=== PATIENT | female | born 1990 | race Caucasian/White ===

== ENCOUNTER 2017-03-25 07:08 | Emergency (ER) | payer OTHER ==
--- NOTE | 2017-03-25 07:28 | UC ---
Ear Complaint HPI - HPI Summary HPI Summary: ONSET OF RIGHT EAR PAIN AND MUFFLED HEARING SINCE YESTERDAY. HAS HAD ALLERGY/ URI SX FOR THE PAST 1-2 WEEKS. HAS TAKEN OTC MEDS WITH NO RELIEF. COUGH IS KEEPING HER UP AT NIGHT. SMOKES A PACK A DAY. NO FEVER, N/V/D. - History of Current Complaint Chief Complaint: UCGeneralIllness Stated Complaint: COUGH, SINUS CONGESTION, AND EAR ACHE Time Seen by Provider: 03/25/17 07:12 Hx Obtained From: Patient Hx Last Menstrual Period: 03/19/17 Onset/Duration: Gradual Onset, Lasting Days, Still Present Severity Initially: Moderate Severity Currently: Moderate Pain Intensity: 8 Pain Scale Used: 0-10 Numeric Aggravating Factors: Nothing Alleviating Factors: Nothing Associated Signs/Symptoms: Positive: Hearing Loss, URI Symptoms. Negative: Discharge, Foreign Body Sensation, Trauma to Ear - Allergies/Home Medications Allergies/Adverse Reactions: Allergies Allergy/AdvReac Type Severity Reaction Status Date / Time No Known Allergies Allergy Verified 03/25/17 07:17 Home Medications: Home Medications Acetaminophen [Eq Acetaminophen] 2 tab PO Q6HR PRN 03/25/17 [History Confirmed 03/25/17] Dextromethorphan-Phenylephrine [Vicks Dayquil Cold & Flu 10-5-325 mg] 2 tab PO Q4HR PRN 03/25/17 [History Confirmed 03/25/17] GuaiFENesin DM* [Robitussin DM*] 1 teasp PO BID PRN 03/25/17 [History Confirmed 03/25/17] Pseudoephedrine TAB* [Sudafed TAB*] 1 tab PO Q4HR PRN 03/25/17 [History Confirmed 03/25/17] PMH/Surg Hx/FS Hx/Imm Hx Respiratory History: Asthma - Surgical History Surgical History: Yes Surgery Procedure, Year, and Place: X3, EYE SURGERY, WISDOM TEETH EXTRACTION - Family History Known Family History: Positive: Cardiac Disease, Diabetes - Social History Alcohol Use: Occasionally Substance Use Type: None Smoking Status (MU): Current Every Day Smoker Type: Cigarettes Amount Used/How Often: 1 PPD Have You Smoked in the Last Year: Yes Household Exposure Type: Cigarettes - Immunization History Most Recent Influenza Vaccination: Declined Most Recent Tetanus Shot: 08/04/15 Most Recent Pneumonia Vaccination: na Review of Systems Constitutional: Negative ENT: Ear Ache, Nasal Discharge Respiratory: Cough Cardiovascular: Negative Gastrointestinal: Negative Genitourinary: Negative All Other Systems Reviewed And Are Negative: Yes Physical Exam Triage Information Reviewed: Yes Appearance: Well-Appearing, No Pain Distress, Well-Nourished Vital Signs: Initial Vital Signs Temp 97.9 F 03/25/17 07:11 Pulse 84 03/25/17 07:11 Resp 20 03/25/17 07:11 BP 135/97 03/25/17 07:11 Pulse Ox 94 03/25/17 07:11 Vital Signs Reviewed: Yes Eyes: Positive: Conjunctiva Clear ENT: Positive: Hearing grossly normal, Pharyngeal erythema, Tonsillar swelling, Other: - RIGHT TM DULL, BULGING, ERYTHEMATOUS, OPAQUE. LEFT TM SLIGHTLY ERYTHEMATOUS. Negative: Tonsillar exudate Neck: Positive: Supple, Nontender, No Lymphadenopathy Respiratory: Positive: No respiratory distress, No accessory muscle use, Decreased breath sounds, Rhonchi - LEFT MID LUNG Cardiovascular Exam: Normal Abdomen Description: Positive: Soft Musculoskeletal: Positive: No Edema Neurological: Positive: Alert Psychological: Positive: Age Appropriate Behavior Skin: Negative: rashes Re-Evaluation - Re-Evaluation First Eval Re-Evaluation Time: 08:10 - O2 SAT IMPROVED TO 97% AND LUNGS CLEAR AFTER DUONEB. PT FEELS BETTER Change: Improved Ear Complaint Course/Dx - Differential Dx/Diagnosis Provider Diagnoses: 1. RIGHT AOM. 2. ACUTE BRONCHITIS Discharge - Discharge Plan Condition: Stable Disposition: HOME Prescriptions: Albuterol HFA INHALER* [Ventolin HFA Inhaler*] 2 puff INH Q4H PRN #1 mdi PRN Reason: Shortness Of Breath Amoxicillin CAP* [Amoxicillin 500 MG CAP*] 1,000 mg PO Q12H #40 cap guaiFENesin/CODIEN 100MG-10MG* [Robitussin AC 100Mg-10Mg*] 5 - 10 ml PO Q6H PRN #150 ml MDD 40ML PRN Reason: Cough Patient Education Materials: Otitis Media (ED), Acute Bronchitis (ED) Referrals: No Primary Care Phys,NOPCP [Primary Care Provider] - Additional Instructions: TAKE THE ANTIBIOTICS FOR THE FULL 10 DAYS. DO NOT STOP [facility] THROUGH. CONTINUE YOUR ANTIHISTAMINE TO COVER FOR ANY ALLERGIC COMPONENT. SEEK FOLLOW-UP IF YOU ARE NOT IMPROVING EXPECTED. CALL THE NUMBER BELOW FOR ASSISTANCE IN ESTABLISHING WITH A PCP An additional resource available to assist in finding the appropriate physician for your health care needs is the [facility] ([facility]). You may contact them by calling [phone].
[2017-03-25] MEDS ORDERED: Albuterol 2.5 MG/3 ML NEB.SOL* (0.083%) INH ONE (07:29)
[2017-03-25] MEDS ORDERED: Ipratropium 0.5MG/2.5ML NEB* 0.5 MG/2.5 ML NEB.SOLN INH ONE (07:29)
[2017-03-25 08:10] VITALS: BP 128/73
== END 2017-03-25 08:24 | disposition home or self-care (01) ==
LOC: UCEAST 07:08
DX: H66.91 Otitis media, unspecified, right ear (principal); J20.9 Acute bronchitis, unspecified; F17.210 Nicotine dependence, cigarettes, uncomplicated; J45.909 Unspecified asthma, uncomplicated
CPT/HCPCS: 99212; G0463; J7644

== ENCOUNTER 2017-09-15 18:51 | Emergency (ER) | payer OTHER ==
[2017-09-15 19:02] VITALS: BP 113/67
--- NOTE | 2017-09-15 19:09 | UC ---
Respiratory Complaint HPI - HPI Summary HPI Summary: 26 year old female presents with sore throat and difficulty swallowing. - History of Current Complaint Chief Complaint: UCGeneralIllness Stated Complaint: URI Time Seen by Provider: 09/15/17 18:55 Hx Obtained From: Patient Hx Last Menstrual Period: 03/19/17 Onset/Duration: Sudden Onset, Lasting Days Severity Initially: Moderate Severity Currently: Moderate Pain Scale Used: 0-10 Numeric - 7 Character: Cough: Nonproductive - Allergies/Home Medications Allergies/Adverse Reactions: Allergies Allergy/AdvReac Type Severity Reaction Status Date / Time No Known Allergies Allergy Verified 09/15/17 19:02 Home Medications: Home Medications Acetaminophen [Acetaminophen Extra Stren] 1,000 mg PO Q4H PRN 09/15/17 [History Confirmed 09/15/17] Vitamin [Calna] 1 tab PO DAILY 09/15/17 [History Confirmed 09/15/17] PMH/Surg Hx/FS Hx/Imm Hx Previously Healthy: Yes - Surgical History Surgical History: Yes Surgery Procedure, Year, and Place: X3, EYE SURGERY, WISDOM TEETH EXTRACTION - Family History Known Family History: Positive: Cardiac Disease, Diabetes Family History: Pt was in foster care. - Social History Alcohol Use: None Substance Use Type: None Smoking Status (MU): Current Every Day Smoker Type: Cigarettes Amount Used/How Often: 1 PPD Have You Smoked in the Last Year: Yes Household Exposure Type: Cigarettes - Immunization History Most Recent Influenza Vaccination: Declined Most Recent Tetanus Shot: 08/04/15 Most Recent Pneumonia Vaccination: na Review of Systems Constitutional: Negative Skin: Negative Eyes: Negative ENT: Sore Throat, Nasal Discharge, Sinus Congestion, Sinus Pain/Tenderness Respiratory: Negative Cardiovascular: Negative Gastrointestinal: Negative Genitourinary: Negative Motor: Negative Neurovascular: Negative Musculoskeletal: Negative Neurological: Negative Psychological: Negative All Other Systems Reviewed And Are Negative: Yes Physical Exam Triage Information Reviewed: Yes Vital Signs: Initial Vital Signs Temp 36.8 C 09/15/17 18:57 Pulse 122 09/15/17 18:57 Resp 20 09/15/17 18:57 BP 113/67 09/15/17 18:57 Pulse Ox 98 09/15/17 18:57 Vital Signs Reviewed: Yes Eye Exam: Normal ENT: Positive: Pharyngeal erythema, Nasal congestion, Nasal drainage, Tonsillar swelling, Tonsillar exudate, Sinus tenderness Dental Exam: Normal Neck exam: Normal Neck: Positive: 1 Respiratory Exam: Normal Cardiovascular Exam: Normal Abdominal Exam: Normal Musculoskeletal Exam: Normal Neurological Exam: Normal Psychological Exam: Normal Skin Exam: Normal UC Diagnostic Evaluation - Laboratory O2 Sat by Pulse Oximetry: 98 Respiratory Course/Dx - Differential Dx/Diagnosis Provider Diagnoses: strep throat. pharyngitis Discharge - Discharge Plan Condition: Stable Disposition: HOME Prescriptions: Amoxicillin PO (*) [Amoxicillin 875 MG (*)] 875 mg PO BID #20 tab Patient Education Materials: Strep Throat (ED), Tonsillitis (ED) Forms: *Work Release Referrals: No Primary Care Phys,NOPCP [Primary Care Provider] - Lemuel James MD [Medical Doctor] -
== END 2017-09-15 19:55 | disposition home or self-care (01) ==
LOC: UCEAST 18:51
DX: J02.0 Streptococcal pharyngitis (principal); F17.210 Nicotine dependence, cigarettes, uncomplicated
CPT/HCPCS: 87502; 87651; 99212; G0463

== ENCOUNTER 2018-02-14 06:05 | Inpatient (IN) | payer OTHER ==
--- NOTE | 2018-02-13 21:37 | HP ---
General Information - General Information Maternal Age: 27 Grav: 4 Para: 3 SAB: 0 IEA: 0 Estimated Due Date: 02/20/18 Determined By: Early Ultrasound Gestational Age in Weeks and Days: 39 Weeks and 0 Days Maternal Blood Type and Rh: A Positive - Results this Serology/RPR Result: Non-Reactive Rubella Result: Immune HBsAg Result: Negative HIV Result: Negative GBS Culture Result: Negative Past Medical History Delivery History: Hx C/Section, See Records Pertinent Past Medical History: See Records Past Medical History Comment: Morbid Obesity BMI 41 Asthma Pertinent Past Surgical History: See Records Past Surgical History Comment: Section X 3 in 1011, 2012 1nd 2016. [place] Teeth removal Eye surgery Pertinent Family History: See Records - CVD and Diabetes Review of Systems Constitutional: Comfortable CV Complaint: No Respiratory: Shortness of Breath: No Gastrointestinal: No Nausea/Vomiting, Normal Bowel Movement Genitourinary: No Dysuria, No Bleeding, No Leaking Fluid Musculoskeletal: No Complaint Neurological: No Headache, No Visual Changes Movement: Normal Exam Allergies/Adverse Reactions: Allergies No Known Allergies Allergy (Verified 02/09/18 12:21) Temp 98.8 BP 120/70 P72 RR 18 - Measurements Height: 5 ft 1 in Weight: 248 lb Weight in lbs: 248 Body Mass Index (BMI): 46.8 Pre- Weight: 220 lb Weight Gained This : 28 lbs and 0 ozs - Exam Abdomen: No Upper Quadrant Pain Breast: Breast Exam Deferred CVA: No CVA Tenderness Extremities: No Edema Heart: Normal Rhythm/Heart Sounds HEENT: No Significant Findings Lungs: Clear Bilaterally Rectal: Rectal Exam Deferred - Ultrasound/Biophysical Profile Ultrasound Status: Not Done Targeted Exam Findings See L&D Outpatient Visit Provider Note for Findings: N/A Cervical Exam: Closed Effacement: 50% Station: High Presenting Part: Vertex Membrane Status: Intact Bleeding/Discharge: None EFM Findings - External Monitor Findings Baseline Heart Rate: 140 Contractions: None Assessment/Plan - Reason for Visit Reason for Visit: 27 y/o with a at 39+ weeks EGA, gestational diabetes A1, BMI41, Prior Section X 3 and desires permanent surgical sterilization. - Obstetrical Risk Factors Obstetrical Risk Factors: Obesity, Gestational Diabetes, Previous C/Section in Labor, Tobacco Use - Plan Plan: Expedite C/S Delivery, Antibiotic Prophylaxis Plan Comment: Plan Repeat Section and bilateral tubal ligation. - Date/Time of Admission Date of Admission: 02/14/18 Time of Admission: 06:30
[~2018-02-14 06:05] MED LIST: Buffered Lidocaine 0.9% SYRIN* 5 ML/SYR SYRINGE INTRADERM ONE; Sodium Citrate/Citric Acid* 15 ML UDC PO ONE
[2018-02-14] MEDS ORDERED: OXYTOCIN* 10 UNITS/ML 1 ML VIAL ONE (07:30)
[2018-02-14] MEDS ORDERED: ceFOXitin(*) 2 GM in NS 0.9% 50 ML* 50 ML IVPB ONE (07:30)
[2018-02-14] MEDS ORDERED: Morphine PF AMP (0.5MG/ML)* 5 MG/10 ML AMP ONE (07:31)
[2018-02-14] MEDS ORDERED: Phenylephrine IV* 40 MCG/ML 10 ML SYRINGE ONE (07:31)
[2018-02-14] MEDS ORDERED: Lidocaine 2% PF * 5 ML VIAL ONE (07:31)
[2018-02-14] MEDS ORDERED: Bupivacaine-MPF SPINAL* 7.5 MG/ML - 2ML AMP ONE (07:32)
[2018-02-14] MEDS ORDERED: Metoclopramide IV* 5 MG/ML 2 ML VIAL ONE (08:26)
[2018-02-14] MEDS ORDERED: Midazolam* 1 MG/ML 2 ML VIAL (2 MG) ONE (08:41)
[2018-02-14] MEDS ORDERED: fentaNYL* 50 MCG/ML 2 ML VIAL (100 MCG VIAL) ONE (08:42)
[2018-02-14] MEDS ORDERED: Ketorolac INJ* 30 MG/ML 1 ML VIAL ONE (09:07)
[2018-02-14] MEDS ORDERED: Witch Hazel PAD* JAR TOPICAL PRN (09:28)
[2018-02-14] MEDS ORDERED: Dibucaine 1% 28.35 GM TUBE PR PRN (09:28)
[2018-02-14] MEDS ORDERED: Glycerin ADULT SUPP PR PRN (09:28)
[2018-02-14] MEDS ORDERED: Zolpidem TAB* 5 MG PO PRN (09:28)
[2018-02-14] MEDS ORDERED: Acetaminophen TAB* 325 MG PO PRN (09:28)
[2018-02-14] MEDS ORDERED: Naloxone* 0.4 MG/ML 1 ML VIAL IV PRN ×2 (09:31→09:32)
[2018-02-14] MEDS ORDERED: fentaNYL* 50 MCG/ML 2 ML VIAL (100 MCG VIAL) IV PRN (09:31)
[2018-02-14] MEDS ORDERED: Ondansetron ODT TAB* 4 MG PO PRN (09:31)
[2018-02-14] MEDS ORDERED: oxyCODONE/Acetamin 5/325 MG* TAB PO PRN ×2 (09:32)
[2018-02-14] MEDS ORDERED: Ondansetron INJ* 2 MG/ML VIAL IV PRN (09:32)
[2018-02-14] MEDS: Nalbuphine* 20 MG/ML 1 ML VIAL IV PRN ×2 (10:27→16:01)
[2018-02-14] MEDS ORDERED: diPHENhydraMINE IV* 50 MG/ML 1 ml VIAL (BENADRYL) IV PRN (13:03)
[2018-02-14] MEDS ORDERED: Nicotine PATCH 14 MG/24 HR* PATCH TRANSDERM ONE (14:00)
[2018-02-14] MEDS: Docusate CAP* 100 MG PO SCH ×2 (14:38→19:26)
[2018-02-14] MEDS: oxyCODONE/Acetamin 5/325 MG* TAB PO PRN ×3 (14:44→23:27)
[2018-02-14] MEDS: Simethicone TAB* 80 MG TAB.CHEW PO SCH ×3 (14:58→19:26)
[2018-02-14] MEDS: Ketorolac INJ* 30 MG/ML 1 ML VIAL IV PRN ×2 (17:02→23:26)
[2018-02-15] MEDS: oxyCODONE/Acetamin 5/325 MG* TAB PO PRN ×5 (05:00→21:10)
[2018-02-15] MEDS: Ketorolac INJ* 30 MG/ML 1 ML VIAL IV PRN (05:00)
[2018-02-15] MEDS: Docusate CAP* 100 MG PO SCH ×3 (08:09→21:10)
[2018-02-15] MEDS: Simethicone TAB* 80 MG TAB.CHEW PO SCH ×4 (08:09→21:10)
[2018-02-15 09:42] LABS: ABS Basophils 0 10^3/ul (0-0.2); ABS Eosinophils 0.1 10^3/ul (0-0.6); ABS Lymphocytes 2.1 10^3/ul (1.0-4.8); ABS Monocytes 0.7 10^3/ul (0-0.8); ABS Neutrophils 8.1 10^3/ul (1.5-7.7); ABS Nucleated RBC 0 10^3/ul; Hematocrit 30 % (35-47); Hemoglobin 9.8 g/dl (12.0-16.0); Mean Corpuscular HGB Conc 33 g/dl (31-36); Mean Corpuscular Hemoglobin 29 pg (27-31); Mean Corpuscular Volume 88 fL (80-97); Mean Platelet Volume 9.8 um3 (7.4-10.4); Nucleated Red Blood Cells % 0.1; Platelet Count 132 10^3/ul (150-450); Red Blood Count 3.41 10^6/ul (4.0-5.4); Red Cell Distribution Width 15 % (10.5-15)
[2018-02-15] MEDS: Ibuprofen TAB* 600 MG PO PRN ×2 (11:04→18:24)
[2018-02-15] MEDS: Ferrous Gluconate TAB* 324 MG TAB PO SCH ×2 (11:04→21:09)
[2018-02-16] MEDS: oxyCODONE/Acetamin 5/325 MG* TAB PO PRN ×4 (00:54→14:53)
[2018-02-16] MEDS: Ibuprofen TAB* 600 MG PO PRN ×3 (00:54→16:32)
[2018-02-16 08:29] VITALS: BP 117/74
[2018-02-16] MEDS: Ferrous Gluconate TAB* 324 MG TAB PO SCH (09:37)
[2018-02-16] MEDS: Simethicone TAB* 80 MG TAB.CHEW PO SCH ×2 (09:37→14:54)
[2018-02-16] MEDS: Docusate CAP* 100 MG PO SCH ×2 (09:37→14:52)
--- NOTE | 2018-02-18 10:10 | OP ---
DATE OF OPERATION: 02/14/18 - ROOM #104 DATE OF : [birth year] SURGEON: Pollo Savage MD MENTALLY IMPAIRED TEACHER: Rain Humphreys MD ANESTHESIA: Spinal. PRE-OP DIAGNOSES: Intrauterine at 39 weeks; gestational diabetes, diet controlled, prior section x3; BMI of 41; desires sterilization. POST-OP DIAGNOSES: Intrauterine at 39 weeks; gestational diabetes, diet controlled, prior section x3; BMI of 41; desires sterilization. OPERATIVE PROCEDURE: Repeat low transverse section with bilateral fimbriectomy. ESTIMATED BLOOD LOSS: 600 cc. SPECIMENS: Sent to Pathology were bilateral tubal fimbriae. FLUIDS: She received 3300 cc of IV crystalloid fluid. URINE OUTPUT: Clear. FINDINGS: Delivery of a female weighing 8 pounds 9 ounces with Apgars of 8 and 9. The placenta was within normal limits. The uterus, adnexa, bowel, and bladder were all within normal limits and there were no complications. DESCRIPTION OF PROCEDURE: The patient was taken to the operating room where she was identified. She was placed on the operating table where a spinal anesthetic was obtained without difficulty. She was then placed in the supine position with a leftward tilt, prepped and draped in a normal sterile fashion. A Pfannenstiel skin incision was then made with a knife and carried through to the underlying layer of fascia. The fascia was nicked in the midline and extended laterally with curved Duran scissors. The fascia was grasped superiorly and inferiorly with Libby clamps and dissected off sharply from the rectus muscle. The rectus muscles were in the midline bluntly, the peritoneum was identified, grasped with pickups, and entered sharply by Metzenbaum scissors and extended superiorly and inferiorly sharply. A bladder blade was inserted into the patient's abdomen. The bladder flap was created over which the bladder blade was then reinserted. A low transverse uterine incision was made with a knife and extended laterally with bandage scissors. The amniotic fluid was noted to be clear. The 's head was then grasped and delivered atraumatically. The rest of the 's body was then delivered. The cord was clamped and cut. The was handed off to the awaiting lean six sigma black belt. Cord bloods were obtained. The placenta was removed manually. The uterus was then exteriorized and cleared of all clot and debris using moist laparotomy sponges. The uterine incision was then closed using 0 Polysorb suture in a running locked fashion with a second imbricating layer of Polysorb suture with good hemostasis noted. At this point, the uterus was then returned to the patient's abdomen, the gutters were then cleared of all clot using moist laparotomy sponges. The uterine incision again was noted to be hemostatic. All the sponges were removed from the patient's abdomen. The peritoneum was then closed using 3-0 Polysorb suture in a running fashion. The fascia was closed using 0 Polysorb suture in a running fashion. The Miracle's fascia was closed with interrupted 3-0 Polysorb sutures and the skin was closed with 4-0 Monocryl subcuticular stitch. The patient tolerated the procedure well. Sponge, lap, needle counts were correct x2. She was then transferred to recovery room area in stable condition. [id number]/[facility] #: [id number] YARI
== END 2018-02-16 17:23 | disposition home or self-care (01) | DRG 540 ==
LOC: MCHOB 06:05
PROVIDERS: ADMIT Obstetrics & Gynecology; ATTEND Obstetrics & Gynecology
PROC: 10D00Z1 Extraction of Products of Conception, Low, Open Approach (ICD-10-PCS; 2018-02-14)
PROC: 4A1HXCZ Monitoring of Products of Conception, Cardiac Rate, External Approach (ICD-10-PCS; 2018-02-14)
PROC: 0UB70ZZ Excision of Bilateral Fallopian Tubes, Open Approach (ICD-10-PCS; principal; 2018-02-14 07:45)
DX: O34.211 Maternal care for low transverse scar from previous cesarean delivery (principal); Z68.42 Body mass index [BMI] 45.0-49.9, adult; O99.214 Obesity complicating childbirth; E66.01 Morbid (severe) obesity due to excess calories; O99.334 Smoking (tobacco) complicating childbirth; F17.200 Nicotine dependence, unspecified, uncomplicated; O24.420 Gestational diabetes mellitus in childbirth, diet controlled; Z3A.39 39 weeks gestation of pregnancy; Z37.0 Single live birth; Z30.2 Encounter for sterilization; O90.81 Anemia of the puerperium
CPT/HCPCS: 36415; 85025; 88302; A9270-GY; J0694; J1200; J1885; J2250; J2300; J2590; J2765; J3010

== ENCOUNTER 2018-06-26 17:11 | Emergency (ER) | payer OTHER ==
[2018-06-26 19:53] VITALS: BP 129/88
--- NOTE | 2018-06-26 20:05 | UC ---
Respiratory Complaint HPI - HPI Summary HPI Summary: 27 y/o female presents to the urgent care c/o nasal congestion, yellowish nasal discharge, sore throat, productive cough w/ a lot of PND. Pt reports Hx of strep 3x a year and she is concerned about it since last time she had to be out of work for 1 week. Pain is 7/10 associated w/ B/L ear pain and pressure. Pt took Tylenol 500mg PO at 1700pm today. Pt denies fever, SOB, wheezing, chest pain, abdominal pain, N/v/D. - History of Current Complaint Chief Complaint: UCRespiratory Stated Complaint: URI Time Seen by Provider: 06/26/18 19:59 Hx Obtained From: Patient Hx Last Menstrual Period: 12 months ago ?: No Onset/Duration: Gradual Onset, Lasting Hours - 12 hrs Timing: Constant Severity Initially: Mild Severity Currently: Moderate Pain Intensity: 6 Pain Scale Used: 0-10 Numeric Character: Cough: Productive, Sputum Description: - yellowish Aggravating Factors: Recumbent Position Alleviating Factors: OTC Meds Associated Signs And Symptoms: Positive: Chills, URI, Nasal Congestion - Risk Factors Pulmonary Embolism Risk Factors: Negative Cardiac Risk Factors: Negative Pseudomonas Risk Factors: Negative Tuberculosis Risk Factors: Negative - Allergies/Home Medications Allergies/Adverse Reactions: Allergies Allergy/AdvReac Type Severity Reaction Status Date / Time No Known Allergies Allergy Verified 06/26/18 19:54 PMH/Surg Hx/FS Hx/Imm Hx Previously Healthy: Yes - Pt denies PMHX - Surgical History Surgical History: Yes Surgery Procedure, Year, and Place: X3, EYE SURGERY, WISDOM TEETH EXTRACTION - Family History Known Family History: Positive: Cardiac Disease, Diabetes Family History: Pt was in foster care. - Social History Occupation: Employed Full-time Lives: With Family Alcohol Use: None Substance Use Type: None Smoking Status (MU): Current Every Day Smoker Type: Cigarettes Amount Used/How Often: 5-6 Have You Smoked in the Last Year: Yes Household Exposure Type: Cigarettes - Immunization History Most Recent Influenza Vaccination: 2016 Most Recent Tetanus Shot: 08/04/15 Most Recent Pneumonia Vaccination: Unknown Review of Systems Constitutional: Chills Skin: Negative Eyes: Negative ENT: Sore Throat, Nasal Discharge - yellowish, Sinus Congestion, Other - +PND Respiratory: Cough - productive Cardiovascular: Negative Gastrointestinal: Negative Genitourinary: Negative Motor: Negative Neurovascular: Negative Musculoskeletal: Negative Neurological: Negative Psychological: Negative Is Patient Immunocompromised?: No All Other Systems Reviewed And Are Negative: Yes Physical Exam - Summary Physical Exam Summary: VITAL SIGNS: Reviewed. GENERAL: Patient is a well developed and nourished female who is sitting comfortable in the examining table. Patient is not in any acute respiratory distress. HEAD AND FACE: No signs of trauma. No ecchymosis, hematomas or skull depressions. No sinus tenderness. EYES: PERRLA, EOMI x 2, No injected conjunctiva, no nystagmus. No photophobia. EARS: Hearing grossly intact. Ear canals and tympanic membranes are within normal limits. Nose: edematous and erythematous nasal mucosa w/ clear nasal discharge. MOUTH: Positive no erythema, no tonsillar enlargement. Uvula in midline. NECK: Supple, trachea is midline, Positive anterior cervical lymphadenopathy, no JVD, no carotid bruit, no c-spine tenderness, neck with full ROM. No meningeal signs, no Kernig's or brudzinskis signs. CHEST: Symmetric, no tenderness at palpation LUNGS: Clear to auscultation bilaterally. No wheezing or crackles. CVS: Regular rate and rhythm, S1 and S2 present, no murmurs or gallops appreciated. ABDOMEN: Soft, non-tender. No signs of distention. No rebound no guarding, and no masses palpated. Bowel sounds are normal. EXTREMITIES: FROM in all major joints, no edema, no cyanosis or clubbing. NEURO: Alert and oriented x 3. No acute neurological deficits. Speech is normal and follows commands. SKIN: Dry and warm Triage Information Reviewed: Yes Vital Signs: Initial Vital Signs Temp 97.4 F 06/26/18 19:50 Pulse 96 06/26/18 19:50 Resp 18 06/26/18 19:50 BP 129/88 06/26/18 19:50 Pulse Ox 98 06/26/18 19:50 UC Diagnostic Evaluation - Laboratory O2 Sat by Pulse Oximetry: 98 Respiratory Course/Dx - Course Course Of Treatment: 27 y/o female presents to the urgent care c/o nasal congestion, yellowish nasal discharge, sore throat, productive cough w/ a lot of PND. Pt reports Hx of strep 3x a year and she is concerned about it since last time she had to be out of work for 1 week. Pain is 7/10 associated w/ B/L ear pain and pressure. Pt took Tylenol 500mg PO at 1700pm today. Pt denies fever , SOB, wheezing, chest pain, abdominal pain, N/v/D. Hxz obtained.Rapid strep ordered, result: negative. Pt w/ URI on examination.Pt Rx ibuprofen PO to alleviates symptoms of pain and swelling. Advised to use saline drops to clear sinuses and take Robitussin PO to alleviate cough. also advised on hand washing to avoid spreading. Pt advised to rest, eat well and avoid strenuous exercise. If symptoms do not improve or worsen advised to return to the urgent care or f/ u with her PCP for further evaluation and treatment. Pt understood and agreed w / plan of care. - Differential Dx/Diagnosis Differential Diagnosis/HQI/PQRI: Asthma, Bronchitis, Influenza, Laryngitis, Sinusitis, Other - pharyngitis Provider Diagnoses: 1- Upper respiratory infection. 2-Cough Discharge - Sign-Out/Discharge Documenting (check all that apply): Patient Departure - D/c home All imaging exams completed and their final reports reviewed: No Studies - Discharge Plan Condition: Stable Disposition: HOME Patient Education Materials: Upper Respiratory Infection (ED) Forms: *Work Release Referrals: [facility] [Outside] - 3 Days Additional Instructions: 1-Please take ibuprofen PO q6-8hrs prn as instructed after meals to alleviate pain and swelling. Increase fluid intake, eat well, rest and avoid strenuous exercise 2- Use saline drops as directed to clear sinuses 3- Take Mucinex PO or Robitussin PO OTC to alleviate cough 4-If symptoms do not improve or worsen please return to the urgent care or f/u with your PCP in 3 days for further evaluation and treatment. - Billing Disposition and Condition Condition: STABLE Disposition: Home - Attestation Statements Provider Attestation: Per institutional requirements, I have reviewed the chart, however, I was not consulted specifically or made aware of this patient by the midlevel provider. I did not personally evaluate, interact with , or disposition this patient.
== END 2018-06-26 20:45 | disposition home or self-care (01) ==
LOC: UCEAST 17:11
DX: J06.9 Acute upper respiratory infection, unspecified (principal); R05 Cough; E11.9 Type 2 diabetes mellitus without complications; F17.210 Nicotine dependence, cigarettes, uncomplicated
CPT/HCPCS: 87651; 99211; G0463

== ENCOUNTER → 2019-04-13 09:00 | Day surgery (SDC) | payer OTHER ==
[~2019-04-13 09:00] MED LIST changes: +Acetaminophen TAB* 325 MG ONE; -Buffered Lidocaine 0.9% SYRIN* 5 ML/SYR SYRINGE INTRADERM ONE; +Buffered Lidocaine 1% SYRIN* 1 ML/SYRINGE INTRADERM ONE; +Dexamethasone IV* 4 MG/ML 1 ML (4 MG) ONE; +Famotidine IV* 10 MG/ML 2 ML (20 mg) IV ONE; +Famotidine IV* 10 MG/ML 2 ML (20 mg) ONE; +Lactated Ringers 1000 ML Bag* 1,000 ML IV SCH; +Levalbuterol 0.63MG/3ML NEB* UNIT OF USE INH ONE; +Levalbuterol 0.63MG/3ML NEB* UNIT OF USE INH PRN; +Levalbuterol 1.25MG/0.5ML NEB ONE; +Lidocaine 2% MPF* 2 ML VIAL ONE; +Midazolam* 1 MG/ML 5 ML VIAL (5 MG) ONE; +Naloxone* 0.4 MG/ML 1 ML VIAL IV PRN; +Ondansetron INJ* 2 MG/ML VIAL IV PRN; +Ondansetron INJ* 2 MG/ML VIAL ONE; +Propofol* 10 MG/ML 20 ML BTL ONE; -Sodium Citrate/Citric Acid* 15 ML UDC PO ONE; +fentaNYL* 50 MCG/ML 2 ML VIAL (100 MCG VIAL) ONE
--- NOTE | 2019-04-13 11:49 | OP ---
DATE OF OPERATION: 04/13/19 - SDS DATE OF : 89 ATTENDING SURGEON: Lemuel James MD SENIOR CHEMICAL ENGINEER: None. ANESTHESIA: General. PRE-OP DIAGNOSIS: Chronic tonsillitis. POST-OP DIAGNOSIS: Chronic tonsillitis. OPERATIVE PROCEDURE: Tonsillectomy. ESTIMATED BLOOD LOSS: Negligible. SPECIMENS: Right and left tonsils to Pathology. INDICATION: This is a 28-year-old woman with chronic recurring tonsillitis who presents for elective tonsillectomy. DESCRIPTION OF PROCEDURE: She was brought to the operating room, general anesthesia was induced, and the patient was orally intubated. The table was turned 90 degrees. The patient was draped and a time-out was performed. A McIvor mouth gag was used to facilitate exposure of the oropharynx and was suspended from the Duran stand. The right tonsil was addressed first. It was grasped with the straight Allis forceps, retracted medially, and dissected free of its fossa with the coblation device at a setting of 7 and 3. There was minimal bleeding. The left tonsil was removed in an identical fashion again utilizing the coblation device with minimal bleeding. Once the tonsil was brought out, the bipolar function was turned up to 5. The superior and inferior pole regions were prophylactically cauterized. An oral gastric tube was then passed in the stomach and the stomach consents were evacuated. The mouth gag was let down for a period of a minute; it was then opened again. There was no evidence of active bleeding in the oropharynx. The patient was then returned to care of the anesthesiologist, extubated and delivered to the PACU. [id number]/[facility] #: [id number] YARI
[2019-04-13] MEDS: fentaNYL* 50 MCG/ML 2 ML VIAL (100 MCG VIAL) IV PRN ×3 (11:50→12:09)
[2019-04-13 12:41] VITALS: BP 107/62
== END | disposition home or self-care (01) ==
LOC: OR 09:00
PROVIDERS: ATTEND Otolaryngology
DX: J35.01 Chronic tonsillitis (principal); F17.210 Nicotine dependence, cigarettes, uncomplicated; F41.8 Other specified anxiety disorders
CPT/HCPCS: 81025; 88304; A9270-GY; J1100; J2250; J2405; J2704; J3010